=== PATIENT | female | born 1970 | race African-American/Black ===

== ENCOUNTER → 2024-12-22 | Outpatient (CLI) | payer SELFPAY ==
--- NOTE | 2024-12-22 15:05 | RAD_ITS ---
EXAM: XR Chest, 2 Views CLINICAL INDICATION: LOCALIZED SWELLING TECHNIQUE: Frontal and lateral views of the chest. COMPARISON: No relevant prior studies available. FINDINGS: LUNGS AND PLEURAL SPACES: Unremarkable. No consolidation. No pneumothorax. HEART: Unremarkable. No cardiomegaly. MEDIASTINUM: Unremarkable. Normal mediastinal contour. BONES/JOINTS: Unremarkable. No acute fracture. RAD/Chest PA and Lateral IMPRESSION: No acute cardiopulmonary process. Reading Location: [facility]
== END | disposition home or self-care (01) ==
LOC: RAD 14:52
PROVIDERS: Referring Provider Nurse Practitioner Family; Visit Provider Nurse Practitioner Family
DX: R22.2 Localized swelling, mass and lump, trunk (principal)
CPT/HCPCS: 71046

== ENCOUNTER → 2024-12-26 | Outpatient (CLI) | payer SELFPAY ==
[2024-12-26 11:59] LABS: Cholesterol 255 mg/dL (<=200); Low Density Lipoprotein Calc. 152 mg/dL; Triglycerides 90 mg/dL; Very Low Density Lipoprotein 18 mg/dL (5-40); cholesterol:hdl ratio screen 3.02
[2024-12-26 12:01] LABS: AST(SGOT) 27 U/L (<=31); Alanine Aminotransfer ALT/SGPT 24 U/L (<=34); Albumin, Serum 4.4 g/dL (3.5-5.0); Alkaline Phosphatase 91 U/L (35-104); Anion Gap 13 (5-15); BUN 14 mg/dL (4-19); BUN/Creat Ratio 12.2 RATIO (10-20); Calcium,Total 10.0 mg/dL (7.6-11.0); Carbon Dioxide 23.4 mmol/L (21.0-32.0); Chloride 106 mmol/L (98-108); Globulin 3.0 g/dL (2.2-4.2); Glucose 104 mg/dL (70-99); Potassium 4.1 mmol/L (3.3-5.1)
--- OUTSIDE RECORDS SUMMARY | 2024-12-26 19:37 | XMS RPT_ITS | CCD ---
Author Organization [facility] Care Team Providers Care Relief Operator Name Role Phone Care Physician, No Primary Primary Care Unava ilable Connie Medina Referring Unavailable Connie Medina Attending Unavailable Connie Medina Referring Unavailable Connie Medina Attending Unavailable Care Physician, No Primary Primary Care Unava ilable Problems Problem Classification Problem Date Documented Da te Episodic/Chronic Other connective tissue disease (1 source) Pain in right lower leg; Translations: [Pain in right lower leg] Onset: 12-22-2024 Episodic Other skin disorders (1 source) Localized swelling, mass and lump, trunk; Translations: [Localized swelling, mass and lump, trunk] Onset: 12-22-2024 Episodic Results Test Name Value Interpretation Reference Range Facil ity Chest PA and Lateralon 12-22 Chest PA and Lateral [facility] [address], [place] [address] Chest PA and Lateral MR#: [id number] Acct: [id number] Name: STACIE OWEN Rep #: [id number] : 1970 F 54 From: Carlyle Levy MD PCP: Care Physician,No Primary Status: REG CLI Study: Chest PA and Lateral Date of Exam: 12/22/24 Exam# [id number] Ordering Dr: Connie Medina ADULT CARE MANAGER-C EXAM: XR Chest, 2 Views CLINICAL INDICATION: LOCALIZED SWELLING TECHNIQUE: Frontal and lateral views of the chest. COMPARISON: No relevant prior studies available. FINDINGS: LUNGS AND PLEURAL SPACES: Unremarkable. No consolidation. No pneumothorax. HEART: Unremarkable. No cardiomegaly. MEDIASTINUM: Unremarkable. Normal mediastinal contour. BONES/JOINTS: Unremarkable. No acute fracture. RAD/Chest PA and Lateral IMPRESSION: No acute cardiopulmonary process. Reading Location: [facility] CC: ADULT CARE MANAGER-C Connie [facility]; No Primary Care Physician Oil Analyst: Signed Tab [facility] Encounters Encounter Date Encounter Type Care Provider Facility Start: 12-22-2024 ambulatory Connie Medina Facility :[facility] Start: 12-22-2024 ambulatory No Primary Care Physici an Facility:[facility] Payers Date Payer Category Payer Self-pay Unknown [id number] Unknown [id number] Summary Purpose Family History No Family History Records Found Advance Directives No Advanced Directives Records Found Additional Source Comments INFORMATION SOURCE (unrecogn ized section and content) DATE CREATED AUTHOR 12/26/[address] [facility] FOR RECORDS PERTAINING TO PATIENTS WHO ARE OR HAVE BEEN ENROLLED IN A CHEMICAL DEPENDENCY/SUBSTANCEABUSE PROGRAM, SOME INFORMATION MAY BE OMITTED. This clinical summary was aggregated from multiple sources. Caution should be exercised in using it in the provision of clinical care. This summary normalizes information from multiple sources, and as a consequence, information in this document may materially change the coding, format and clinical context of patient data. In addition, data may be omitted in some cases. CLINICAL DECISIONS SHOULD BE BASED ON THE PRIMARY CLINICAL RECORDS. [facility]. provides no warranty or guarantee of the accuracy or completeness of information in this document.
== END | disposition home or self-care (01) ==
PROVIDERS: Referring Provider Nurse Practitioner Family; Visit Provider Nurse Practitioner Family
DX: Z13.220 Encounter for screening for lipoid disorders (principal); Z13.1 Encounter for screening for diabetes mellitus
CPT/HCPCS: 36415; 80053; 80061; 83036

== ENCOUNTER → 2024-12-29 | Outpatient (CLI) | payer SELFPAY ==
--- NOTE | 2024-12-29 15:23 | BI_ITS ---
EXAM: SCRN MAMM (CAD)W/VICENTE BILAT DATE: 12/29/2024 CLINICAL HISTORY: F, Age 54 y/o , SCREENING TECHNIQUE: SCRN MAMM (CAD)W/VICENTE BILAT COMPARISON: None available FINDINGS: TISSUE DENSITY: The breasts are heterogeneously dense, which may obscure small masses. Bilateral Breast Mammographic Findings: No suspicious masses, calcifications or other abnormalities are identified. BI/SCRN MAMM (CAD)W/VICENTE BILAT IMPRESSION: No mammographic evidence of malignancy in either breast. OVERALL FINAL ASSESSMENT BI-RADS 1: NEGATIVE. RECOMMENDATION: Routine annual follow-up in 1 Year A letter with findings and recommendations will be mailed to the patient. Reading Location: [id number]
== END | disposition home or self-care (01) ==
PROVIDERS: Referring Provider Nurse Practitioner Family; Visit Provider Nurse Practitioner Family
DX: Z12.31 Encounter for screening mammogram for malignant neoplasm of breast (principal)
CPT/HCPCS: 77063; 77067

== ENCOUNTER → 2025-01-04 | Outpatient (CLI) | payer SELFPAY ==
--- NOTE | 2025-01-04 12:09 | US_ITS ---
PROCEDURE: CHEST 01/04/2025 REASON FOR EXAM: SWELLING MASS AND LUMP Palpable lump in the right supraclavicular region. TECHNIQUE: Imaging of the palpable abnormality was obtained. No sonographic abnormality is seen. COMPARISON: None US/Chest IMPRESSION: No sonographic abnormality is seen. Reading Location: [id number]
--- NOTE | 2025-01-04 12:10 | VDLE_ITS ---
Reason For Study Reason For Study: RLE PAIN RIGHT LEFT GSV is normal. CFV is compressible, spontaneous, phasic, competent, CFV is compressible, spontaneous, phasic, competent and demonstrates normal augmentation. and demonstrates normal augmentation. FV is compressible, spontaneous, phasic, competent and demonstrates normal augmentation. POP V is compressible, spontaneous, phasic, competent and demonstrates normal augmentation. T/P Trunk is compressible. PTV is compressible. RT PerV is compressible. Procedure This is a venous duplex using B-mode, color flow and spectral Doppler. Exam performed in department. A preliminary report was called and/or faxed to Connie Medina PAPER BAG MACHINE OPERATOR-C @ [phone] @ 13:00. VL/Venous Duplex US, Unilateral Interpretation Summary Deep veins of the right lower extremity are patent and compressible segmentally . There is no evidence of right lower extremity deep vein thrombosis. Valvular competence appears intact within the p roximal deep venous system on the right . The right great saphenous vein appears patent and compressible segmentally. The left common femoral vein is patent and compressible . Ordering Physician: Connie Medina Referring Physician: Connie Medina Performed By: Jennifer Lozano, HEYDI, RVT
== END | disposition home or self-care (01) ==
PROVIDERS: PCP Nurse Practitioner Family; Referring Provider Nurse Practitioner Family; Visit Provider Nurse Practitioner Family
DX: R22.2 Localized swelling, mass and lump, trunk (principal); M79.661 Pain in right lower leg
CPT/HCPCS: 76604; 93971